=== PATIENT | male | born 1945 | race Caucasian/White ===

== ENCOUNTER 2017-11-24 12:32 | Day surgery (SDC) | payer MEDICARE, OTHER, SELFPAY ==
--- NOTE | 2017-11-24 | PATH_ITS ---
[facility] Accession Number: [id number] . 01 Material submitted: . PART A: POLYP AT 85CM PART B: POLYP AT 70CM PART C: POLYP AT 20CM . 02 Diagnosis: A. Colon Polyp at 85 cm: Tubular adenoma. . B. Colon Polyp at 70 cm: Tubular adenoma. . C. Colon Polyp at 20 cm: Hyperplastic polyp. MRV/11/26/2017 . 02 Electronically signed: . Franklin Fontanez MD, PhD, Pathologist NPI- [id number] . 01 Gross description: . Received three formalin-filled containers, each labeled with the patient's name. . A. In a container labeled polyp at 85 cm, the specimen consists of a 0.6 cm portion of tissue entirely submitted in cassette A. B. In a container labeled polyp at 70 cm, the specimen consists of a 0.2 cm portion of tissue entirely submitted in B. C. In a container labeled polyps at 20 cm, are two 0.2-0.3 cm portions of tissue entirely submitted in cassette C. ([facility] [place]:[id number]) /MRV . 02 Pathologist provided ICD-10: D12.6, K63.5 . 02 CPT . 459527, 024003, 968942 Performed at: 01 [facility] [address], [place], [place] [id number] MD Terrell Lutz MD Phone: [phone] Performed at: 02 [facility] [address] [place], [place] [id number] MD Jf Coker MD Phone: [phone]
[2017-11-24 13:23] VITALS: BP 146/79; PULSE 68; RESP 20; TEMP 37.1; O2SAT 98
[2017-11-24] MEDS: SODIUM CHLORIDE 0.9% 1,000 ML 200 ML IV (13:30)
--- NOTE | 2017-11-24 14:25 | PM.HP.1 ---
History of Present Illness Date Patient Seen: 11/24/17 Time Patient Seen: 14:25 Chief complaint: [id number] Narrative: Very pleasant gentleman with a family history of colon cancer. His last colonoscopy was in 2010. At that time he reports it was a failed procedure and she was not able to get ?all way around?. He reports that his mother from colon cancer. He is not certain how old she was or if it was actually advanced at the time of diagnosis. He says that she was inoperable because of emphysema not because of the stage of the cancer. He denies any problems or symptoms related to the function of his GI tract. He very much dislikes our prep but otherwise he is happy today and ready to get this over with. Patient History Family & Social History Family History: Reviewed 11/24/17 by Lou Flynn MD Social History: household members significant other Review of Systems Review of Systems All systems reviewed & are unremarkable except as noted in HPI and below Exam Vital Signs (past 8 hours): Vital Signs - 8 hr 11/24/17 13:23 Temperature 98.8 F Pulse Rate 68 Respiratory Rate 20 Blood Pressure 146/79 H Pulse Oximetry 98 Pulse Oximetry 98 Oxygen Delivery Method Room Air Narrative Exam Narrative: Very pleasant well-nourished well-developed gentleman in no distress HEENT: Normocephalic and atraumatic, pupils equal round reactive to light accommodation with anicteric sclera Lungs: Clear to auscultation bilaterally Heart: Regular rate and rhythm without murmur rub or gallop Abdomen: Soft, nontender, active bowel sounds. Extremities: Warm and well perfused Assessment & Plan Plan: Assessment/Plan Narrative: Mr. Davis is somewhat higher risk than normal due to his history of having had a cardiac arrhythmia-specifically ventricular tachycardia-at the end of a stress test. He has seen a bundle collector who has determined that he is low risk for repeat event and he is taking metoprolol. We have discussed the risks and benefits of colonoscopy and the patient has expressed a desire to have the procedure.
--- NOTE | 2017-11-24 14:29 | P.HP_ITS ---
History of Present Illness Date Patient Seen: 11/24/17 Time Patient Seen: 14:25 Chief complaint: [id number] Narrative: Very pleasant gentleman with a family history of colon cancer. His last colonoscopy was in 2010. At that time he reports it was a failed procedure and she was not able to get ?all way around?. He reports that his mother from colon cancer. He is not certain how old she was or if it was actually advanced at the time of diagnosis. He says that she was inoperable because of emphysema not because of the stage of the cancer. He denies any problems or symptoms related to the function of his GI tract. He very much dislikes our prep but otherwise he is happy today and ready to get this over with. Patient History Family & Social History Family History: Reviewed 11/24/17 by Lou Flynn MD Social History: household members significant other Review of Systems Review of Systems All systems reviewed & are unremarkable except as noted in HPI and below Exam Vital Signs (past 8 hours): Vital Signs - 8 hr 3 11/24/17 13:23 Temperature 98.8 F Pulse Rate 68 Respiratory Rate 20 Blood Pressure 146/79 H Pulse Oximetry 98 Pulse Oximetry 98 Oxygen Delivery Method Room Air Narrative Exam Narrative: Very pleasant well-nourished well-developed gentleman in no distress HEENT: Normocephalic and atraumatic, pupils equal round reactive to light accommodation with anicteric sclera Lungs: Clear to auscultation bilaterally Heart: Regular rate and rhythm without murmur rub or gallop Abdomen: Soft, nontender, active bowel sounds. Extremities: Warm and well perfused Assessment & Plan Plan: Assessment/Plan Narrative: Mr. Davis is somewhat higher risk than normal due to his history of having had a cardiac arrhythmia-specifically ventricular tachycardia-at the end of a stress test. He has seen a scoop filler who has determined that he is low risk for repeat event and he is taking metoprolol. We have discussed the risks and benefits of colonoscopy and the patient has expressed a desire to have the procedure.
--- NOTE | 2017-11-24 14:57 | PM.OP.1 ---
Operative Date/Time/Diagnoses - Date of procedure: 11/24/17 Time of procedure: 14:57 Pre-op diagnosis: Personal history of colon polyps Family history of colon cancer Post-op diagnosis: same Procedure & Clinicians Procedure: Copy to the cecum with polypectomy times 4 Same procedure as scheduled: Yes Indications: Last colonoscopy 2010 Surgeon: Luo Flynn Click Yes if Unassisted: Yes Anesthesia Type: Sedation (Versed 7 mg; fentanyl 250 mcg) Operative Notes Findings: 1. Excellent prep 2. Pedunculated polyp at 85 cm from the anal verge removed with snare cautery and retained for pathology-approximately 7 mm 3. Semi pedunculated polyp at 70 cm from the anal verge removed with snare and cautery and retained for pathology-approximately 4 mm 4. Sessile polyps at 20 cm from the anal verge removed with cold forceps and retained for pathology 5. Small scattered diverticula throughout the colon 6. Grade 1 internal hemorrhoids Closure Type: not applicable Specimen(s): other (See list) Estimated Blood Loss (mL): 1 Blood products transfused: none Procedure in detail: After obtaining informed consent, the patient was brought to the GI suite and placed in the left lateral decubitus position on the examination table. After placement of appropriate monitors, the patient was given incremental doses of Versed and Fentanyl until an appropriate level of sedation was achieved. A time out was held per SCOAP protocol. A digital rectal examination was performed and did not reveal any masses or obstructing lesions. The colonoscope was gently passed into the patient's anus and the entire colon navigated to the level of the cecum with minimal difficulty. Once in the cecum, the scope was withdrawn being sure to go before and beyond all mucosal folds and prominences and get an excellent examination. The findings are noted above. At the level of the rectal vault, the scope was retroflexed and the internal anal canal was examined. The scope was straightened and air aspirated from the colon. The instrument was removed from the patient's body and the procedure was concluded. The patient was allowed to awaken from sedation without difficulty and taken to the post-anesthesia care unit in good condition. Total sedation time 27 min Total withdrawal time 17 min Complications: none Condition: stable Disposition: PACU Plan for aftercare: 1. Discharge to home 2. Plan for next colonoscopy in 3 years or as clinically indicated
[2017-11-24 14:59] VITALS: BP 138/93; PULSE 78; RESP 15; TEMP 36.6
[2017-11-24] MEDS: fentaNYL 250 MCG/5 ML INJ IV (15:01)
[2017-11-24] MEDS: MIDAZOLAM 5 MG/5 ML VIAL IV (15:01)
[2017-11-24 15:04] VITALS: BP 118/69; PULSE 73; RESP 18
[2017-11-24 15:10] VITALS: BP 106/70; PULSE 75; RESP 18; TEMP 36.5
== END 2017-11-24 15:34 | disposition home or self-care (01) ==
PROVIDERS: Family Provider Family Medicine; PCP Family Medicine; Visit Provider Surgery
PROC: 0DJD8ZZ Inspection of Lower Intestinal Tract, Via Natural or Artificial Opening Endoscopic (ICD-10-PCS; CPT 45378; principal; 2017-11-24 14:00)
DX: Z12.11 Encounter for screening for malignant neoplasm of colon (principal); Z86.010 Personal history of colon polyps; K57.30 Diverticulosis of large intestine without perforation or abscess without bleeding; K64.0 First degree hemorrhoids; D12.6 Benign neoplasm of colon, unspecified; K63.5 Polyp of colon; Z80.0 Family history of malignant neoplasm of digestive organs; I47.2 Ventricular tachycardia
CPT/HCPCS: 45385; 45380; 88305; 99152; 99153; J2250; J3010

== ENCOUNTER → 2018-06-10 10:46 | Outpatient (CLI) | payer MEDICARE, OTHER, SELFPAY ==
--- NOTE | 2018-06-10 | DI.RAD.S_ITS ---
PROCEDURE: XR ANKLE LT MIN 3V INDICATIONS: LEFT ANKLE PAIN TECHNIQUE: 3 views of the ankle were acquired. COMPARISON: None. FINDINGS: Bones: No fractures or dislocations. Ankle mortise is normally aligned. No suspicious bony lesions. There is [id number] talonavicular joint degeneration with joint space narrowing, subchondral sclerosis and large superior osteophytes. Calcaneal spurring. Soft tissues: No tibiotalar joint effusion. Achilles tendon appears normal. IMPRESSION: Mild/moderate degenerative joint disease. Dictated by: Juno Celis M.D. on 06/10/2018 at 11:55 Approved by: Juno Celis M.D. on 06/10/2018 at 11:57
== END ==
PROVIDERS: Family Provider Family Medicine; PCP Family Medicine; Visit Provider Family Medicine
DX: M25.572 Pain in left ankle and joints of left foot (principal)
CPT/HCPCS: 73610

== ENCOUNTER → 2018-12-24 12:32 | Outpatient (CLI) | payer MEDICARE, OTHER, SELFPAY ==
--- NOTE | 2018-12-24 | DI.US.S_ITS ---
PROCEDURE: US ABD AORTA ANEURYSM SCREEN INDICATIONS: SCREENING AAA TECHNIQUE: Real time scanning was performed of the aorta and iliac arteries, with image documentation. COMPARISON: [facility], CT, ABDOMEN/PELVIS WITH CONTRAST, 03/31/2014, 15:07. FINDINGS: Aorta: Proximal aorta is not well-visualized due to patient scanning characteristics. Mid abdominal aorta measures 1.8 cm in diameter. Distal common aorta measures 1.9 cm in diameter. Iliac arteries: Right common iliac artery measures 1.3 cm. Left common iliac artery measures 1.1 cm. Incidental note of a 7.5 x 6.0 x 6.2 cm inferior right renal cyst with a few internal thin septations. No vascularity of the septations or this cyst. A simple cyst noted in the inferior pole the right kidney was seen on comparison CT of 2013 and measured up to 6.9 cm in maximum dimension. IMPRESSION: 1. No sonographic evidence for abdominal aortic aneurysm. However, proximal abdominal aorta was not well-visualized. 2. 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 Recommend followup multiphasic CT of the abdomen (renal mass protocol) to evaluate this renal cyst in 6-12 months. Dictated by: Addi Jimenez M.D. on 12/24/2018 at 16:34 Approved by: Addi Jimenez M.D. on 12/24/2018 at 16:53
== END ==
PROVIDERS: Family Provider Family Medicine; PCP Family Medicine; Visit Provider Family Medicine
DX: Z13.6 Encounter for screening for cardiovascular disorders (principal); N28.1 Cyst of kidney, acquired
CPT/HCPCS: 76706

== ENCOUNTER → 2020-08-23 10:52 | Outpatient (CLI) | payer MEDICARE, OTHER, SELFPAY ==
--- NOTE | 2020-08-23 10:55 | DI.US.S_ITS ---
PROCEDURE: US ABDOMEN LIMITED INDICATIONS: ELEVATED LFTS TECHNIQUE: Real-time scanning was performed of the abdominal and retroperitoneal organs, with image documentation. COMPARISON: None. FINDINGS: Liver: Liver is enlarged measuring 18.4 cm with severe increased echogenicity. Gallbladder: No stones are identified. Wall thickness is within normal limits measuring 1.7 cm. Biliary ducts: Intrahepatic bile ducts are non-dilated. Extrahepatic bile duct caliber measures 4.1 mm. Normal is 6-7 mm or less in diameter, or 10 mm or less post-cholecystectomy. IMPRESSION: Marked hepatomegaly with steatosis. Dictated by: Brina Severino M.D. on 08/23/2020 at 14:17 Approved by: Brina Severino M.D. on 08/23/2020 at 14:17
== END ==
PROVIDERS: Family Provider Family Medicine; PCP Family Medicine; Referring Provider Family Medicine; Visit Provider Family Medicine
DX: R79.89 Other specified abnormal findings of blood chemistry (principal); K76.0 Fatty (change of) liver, not elsewhere classified
CPT/HCPCS: 76705

== ENCOUNTER → 2022-11-14 14:38 | Outpatient (CLI) | payer MEDICARE, OTHER, SELFPAY ==
--- NOTE | 2022-11-14 | DI.RAD.S_ITS ---
PROCEDURE: XR KNEE LT 3V INDICATIONS: PAIN IN KNEE TECHNIQUE: 3 views of the knee were acquired. COMPARISON: [facility], , KNEE 3V LEFT, 11/24/2014, 13:01. FINDINGS: Bones: No fractures or dislocations. No suspicious bony lesions. Mild tricompartmental degenerative changes. Soft tissues: No joint effusion. No suspicious soft tissue calcifications. IMPRESSION: Mild tricompartmental degenerative changes. Dictated by: Monico Gibson M.D. on 11/14/2022 at 15:53 Approved by: Monico Gibson M.D. on 11/14/2022 at 15:55
== END ==
PROVIDERS: Family Provider Family Medicine; PCP Family Medicine; Referring Provider Family Medicine; Visit Provider Family Medicine
DX: M25.562 Pain in left knee (principal)
CPT/HCPCS: 73562